=== PATIENT | female | born 1950 | race Caucasian/White ===

== ENCOUNTER → 2024-06-06 | Outpatient (CLI) | payer MEDICARE, BC, SELFPAY ==
--- NOTE | 2024-06-06 09:00 | XR_ITS ---
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 supine abdomen single view demonstrates nonobstructive bowel gas pattern Patient swallowed thin barium with 22 spot films obtained of the esophagus and stomach Primary peristaltic esophageal waves noted Secondary esophageal contractions depicted Mild gastroesophageal reflux No stricture the gastroesophageal junction There is mild mucosal fold thickening at the gastroesophageal junction Tiny gastric remnant Immediate emptying into the jejunum with no anastomotic stricture or ulceration IMPRESSION: Mild intermittent gastroesophageal reflux Mucosal fold thickening at the gastroesophageal junction, likely reflux esophagitis Tiny gastric remnant Immediate emptying into the jejunum with no anastomotic stricture or ulceration Fluoroscopy 0.30 minutes 22 spot fluoroscopic films
== END | disposition home or self-care (01) ==
LOC: CDIM 08:43
PROVIDERS: PCP Specialist; Referring Provider Surgery; Visit Provider Surgery
DX: K21.9 Gastro-esophageal reflux disease without esophagitis (principal); K22.89 Other specified disease of esophagus; Z98.84 Bariatric surgery status; Z98.890 Other specified postprocedural states
CPT/HCPCS: 74240

== ENCOUNTER → 2024-07-05 | Outpatient (CLI) | payer MEDICARE, BC, SELFPAY ==
--- NOTE | 2024-07-05 09:52 | XR_ITS ---
Examination: Bilateral hips, AP pelvis, 5 views Technique: AP, lateral views both hips, AP pelvis, 5 views Exam date and time: July 05, 2024 1045 hours INDICATIONS: Bilateral hip pain beginning 2 months ago. FINDINGS: Moderate osteopenia Mild to moderate narrowing right hip joint Moderate narrowing left hip joint No hip fracture or hip dislocation Bones the pelvis intact IMPRESSION: Mild to moderate narrowing right hip joint Moderate narrowing left hip joint
--- NOTE | 2024-07-05 09:52 | XR_ITS ---
Examination: Shoulder,left, 3 views Technique: Shoulder AP internal rotation, AP external rotation, Y view shoulder, 3 views Exam date and time :July 05, 2024 1045 hours INDICATIONS: Left shoulder pain beginning 2 months ago. FINDINGS: Prominent osteopenia Moderate narrowing glenohumeral joint Moderate osteoarthritis acromioclavicular joint Faint calcific tendinitis No fracture or dislocation IMPRESSION: Moderate narrowing glenohumeral joint Faint calcific tendinitis
== END | disposition home or self-care (01) ==
PROVIDERS: PCP Specialist; Referring Provider Specialist; Visit Provider Specialist
DX: M25.852 Other specified joint disorders, left hip (principal); M25.851 Other specified joint disorders, right hip; M75.32 Calcific tendinitis of left shoulder; M25.812 Other specified joint disorders, left shoulder
CPT/HCPCS: 73030; 73523

== ENCOUNTER → 2024-08-22 | Outpatient (CLI) | payer MEDICARE, BC, SELFPAY ==
--- NOTE | 2024-08-22 07:15 | XR_ITS ---
Examination: Abdomen sonogram, Limited Date and time of exam: August 22, 2024 0721 hrs. Indications: Elevated liver function tests on laboratory examination February 16, 2023, cholecystectomy 2017 Technique: Real-time chappell scale transabdominal sonographic images of the upper abdomen obtained. Findings: Absent gallbladder Common bile duct 0.4 cm no stones Pancreatic head 3.0 cm Liver 14.5 cm smooth contour no focal liver lesions Normal hepatopedal portal venous flow Patent IVC Impression: Absent gallbladder Normal common bile duct Liver normal size no focal liver lesions
== END | disposition home or self-care (01) ==
PROVIDERS: PCP Specialist; Referring Provider Specialist; Visit Provider Specialist
DX: K82.8 Other specified diseases of gallbladder (principal)
CPT/HCPCS: 76705

== ENCOUNTER 2024-09-16 11:45 | Day surgery (SDC) | payer MEDICARE, BC, SELFPAY ==
[2024-09-14 13:20] VITALS: BMI 29.0
--- NOTE | 2024-09-15 07:00 | EKG_ITS ---
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
--- NOTE | 2024-09-15 10:26 | XR_ITS ---
Examination: PA lateral chest 2 views TECHNIQUE: Upright PA lateral chest 2 views Exam date and time: September 15, 2024 10:50 AM Comparison May 06, 2017 INDICATIONS: Preop pacemaker insertion FINDINGS: Normal heart size. Lungs are clear. The osseous structures are intact IMPRESSION: No active disease
[2024-09-15 11:51] LABS: Basophils % (Auto) 1 % (0-2.5); Eosinophils # (Auto) 0.2 Thou/mm3 (0.0-0.5); Eosinophils % (Auto) 4 % (0-10); Hematocrit 41.5 % (36.0-46.0); Hemoglobin 13.5 g/dL (12.0-16.0); Immature Granulocytes % (Auto) 0 % (0-0); Immature Granulocytes Auto 0.01 Thou/mm3 (0.00-0.00); Lymphocytes # (Auto) 0.8 Thou/mm3 (1.0-4.8); Lymphocytes % (Auto) 13 % (10-50); Mean Corpuscular HGB Conc 32.5 g/dl (31.0-37.0); Mean Corpuscular Hemoglobin 28.7 pg (25.0-35.0); Mean Corpuscular Volume 88 fL (80-100); Monocytes # (Auto) 0.5 Thou/mm3 (0.0-0.8); Monocytes % (Auto) 9 % (0-12); Neutrophils # (Auto) 4.5 Thou/mm3 (1.8-7.7); Neutrophils % (Auto) 74 % (37-80); Nucleated Red Blood Cell % 0 /100 WBC (0); Platelet Count 206 Thou/mm3 (140-440); RDW Standard Deviation 46.7 fL (36.4-46.3); Red Blood Count 4.71 Miln/mm3 (4.00-5.20); White Blood Count 6.1 Thou/mm3 (3.6-11.0)
[2024-09-15 11:57] LABS: INR 1.1 (0.9-1.3); Partial Thromboplastin Time 27.9 Seconds (22.0-36.0); Prothrombin Time 11.8 Seconds (9.0-12.2)
[2024-09-15 12:09] LABS: Albumin, Serum 4.2 gm/dL (3.4-4.8); Anion Gap 9 (7-16); BUN/Creatinine Ratio 14 Ratio (12-20); Blood Urea Nitrogen 13 mg/dL (9-23); Calcium 9.3 mg/dL (8.3-10.6); Calcium (Corrected) 9.3 mg/dL (8.5-10.1); Carbon Dioxide 29.6 mMol/L (20.0-31.0); Chloride 107 mMol/L (98-107); Creatinine (Component) 0.9 mg/dL (0.6-1.3); Estimated Creatinine Clearance 57.9 mL/min (>60); Glucose 95 mg/dL (74-106); Osmolality,Calculated 290 (275-295); Phosphorous 4.3 mg/dL (2.4-5.1); Potassium 3.6 mMol/L (3.4-5.1); Sodium 146 mMol/L (136-145); eGFR > 60 See Note
[2024-09-16] VITALS (8 sets, daily range): BP systolic 142–196; BP diastolic 72–96; PULSE 51–70; RESP 13–18; TEMP 36.1–36.7; O2SAT 96–99
--- NOTE | 2024-09-16 14:59 | XR_ITS ---
Examination: AP chest single view Technique one AP semiupright portable chest single view Exam date and time: September 16, 2024 1559 hours FINDINGS: Post cardiac pacemaker placement FINDINGS: Transvenous dual chamber bipolar cardiac leads satisfactory position No pneumothorax Normal heart size Lungs are clear IMPRESSION: Cardiac leads satisfactory position
[2024-09-16] MEDS: ceFAZolin 1 GM in SODIUM CHLORIDE 0.9% (POP) 100 ML IV (15:10)
[2024-09-16] MEDS: hydrALAZINE INJ 20 MG/ML VIAL 10 MG IV (15:50)
--- NOTE | 2024-09-16 16:18 | ESOP_ITS ---
Cardiac Cath Procedure Procedure Narrative Procedure date 09/16/24 TITLE OF THE PROCEDURE: PERMANENT PACEMAKER PLACEMENT Indication for the procedure; Sick sinus syndromes ; this is a 74 yr ol dpt with HTN, c/o of fatigue , tiredness and dizziness symptoms pt had evaluation and HR was noted to be in the mid 40s; diagnosis of SSS was made and pacemaker was recommended ; Procedure ; Procedure was done in the medical lab tech instructor after appropriate timeout and under continuous electrocardiographic monitoring and intermittent blood pressure mon itoring and after instituting conscious sedation we started the procedure. Left subclavian region was prepared in a sterile fashion and sterile gowns were applied. 1% lidocaine anesthesia was used locally. Left subclavian venous access was obtained. Modified Seldinger technique was used for this. After the blood return was confirmed guidewire was placed into the left subclavian vein. We proceeded with making a pacemaker pocket. Incision was made over the left subclavian region and hemostasis was achieved. By gentle dissection pacemaker pocket was fashioned out of the prepectoralis fascia. Subsequently venous sheath was placed over the guidewire and a second guidewire was also placed through the venous sheath. Subsequently a new venous sheet was gently passed over one of the guidewires and through the venous sheet ventricular lead was gently advanced under fluoroscopic guidance. Ventricular lead was positioned at the apex of the right ventricle under fluoroscopic guidance and the lead was gently screwed into the myocardium. Subsequently we proceeded with lead testing. After the ventricular lead was placed, through a second venous sheath atrial lead was advanced under fluoroscopic guidance. Subsequently the atrial lead was positioned into the right atrial appendix and gently screwed in. After that atrial lead was tested. After both leads were tested and they were connected to the generator. The generator was placed in the pocket and pocket was flushed with antibiotic solution. Subsequently further hemostasis was achieved and pocket was inspected carefully and removed all gauzes. The generator was sutured to the prepectoralis fascia with silk. We started to proceed with suturing of the pocket. 2-0 Vicryl was used to suture the pocket and Dermabond was used to secure the skin. TESTING PARAMETERS ARE: Atrial lead: [employer] [id number] P-wave: 1.5 m.volts Threshold: 1 colts ant .4 ms Impedance: 487 ohms Ventricular lead [employer] [id number] R-wave: 8.2 m.V Threshold:1 vots at .4 ms Impedance: 877 ohms After the procedure was done, the final position of the leads and pacemaker was confirmed by fluoroscopy, and patient was taken to the recovery on stable conditions.
--- NOTE | 2024-09-16 17:03 | PC.NURSE ---
patient tranfered vias wheel chair to private car accompanied by spouse. dressing is clean dry and intact. discharge instructions given to both spouse and patient. both expressed verbal understanding.
== END 2024-09-16 16:57 | disposition home or self-care (01) ==
PROVIDERS: PCP Specialist; Referring Provider Internal Medicine; Visit Provider Internal Medicine
PROC: (CPT 33208; principal; 2024-09-16 13:00)
DX: I49.5 Sick sinus syndrome (principal); I10 Essential (primary) hypertension; Z01.810 Encounter for preprocedural cardiovascular examination; I25.10 Atherosclerotic heart disease of native coronary artery without angina pectoris; E78.5 Hyperlipidemia, unspecified
CPT/HCPCS: 33208; 36415; 71046; 80048; 80069; 82040; 84100; 85025; 85610; 85730; 93005; 99152; 99153; A4565; A4649; C1785; C1894; C1898; J0153; J0171; J0360; J0461; J0690; J2250; J2310; J3010; J3490

== ENCOUNTER → 2025-01-10 | Outpatient (CLI) | payer MEDICARE, BC, SELFPAY ==
--- NOTE | 2025-01-10 08:00 | XR_ITS ---
Examination: Screening digital mammography, bilateral Computer aided detection 3-D breast Tomosynthesis, bilateral Date and time of exam: January 10, 2025 0802 hours Compared to mammograms dating to February 03, 2017 Indication: Screening Technique: Nonmagnified MLO, CC views of the breasts to been obtained, reconstructed from 3-D Tomosynthesis images. R2 computer aided detection program utilized for evaluation of suspicious masses and/or abnormal calcifications. 3-D Tomosynthesis images obtained. Findings: The breasts are heterogeneously dense, which may obscure small masses Breast biopsy marker upper outer right breast Benign calcifications Skin lesions right breast No interval suspicious masses Impression: BI-RADS category II: Benign Findings. Recommend 1 year follow-up mammogram.
== END | disposition home or self-care (01) ==
LOC: CDIM 07:42
PROVIDERS: PCP Specialist; Referring Provider Specialist; Visit Provider Specialist
DX: Z12.31 Encounter for screening mammogram for malignant neoplasm of breast (principal); R92.1 Mammographic calcification found on diagnostic imaging of breast; R92.333 Mammographic heterogeneous density, bilateral breasts
CPT/HCPCS: 77063; 77067

== ENCOUNTER → 2025-01-25 | Outpatient (CLI) | payer MEDICARE, BC, SELFPAY ==
--- NOTE | 2025-01-25 09:00 | XR_ITS ---
Examination: Upper GI series with KUB Esophagram standard Fluoroscopy 13 spot fluoroscopic films of the esophagus and stomach Date and time: January 25, 2025 0939 hours INDICATIONS: Coughing difficulty swallowing 6 months, gastric bypass July 2013, history esophageal strictures with dilatation x3 the last 10 months ago FINDINGS: Hat Renovator AP supine abdomen nonobstructive bowel gas pattern Patient swallowed thin barium with 13 spot fluoroscopic films of the esophagus stomach and jejunum, fluoroscopy 0.17 minute Primary peristaltic esophageal waves noted Mucosal thickening in the distal esophagus which is pronounced Narrowing in the distal esophagus, 80% luminal reduction in dimension Small esophageal hernia, intermittent gastroesophageal reflux Significant partial gastrectomy, mucosal edema at the anastomosis with the jejunum IMPRESSION: Abnormal mucosal thickening in the distal esophagus with 80% reduction in dimension of the distal esophagus, recommend endoscopy follow-up to exclude esophageal tumor Partial gastrectomy Mucosal edema at the gastrojejunal anastomosis
== END | disposition home or self-care (01) ==
PROVIDERS: PCP Specialist; Referring Provider Specialist; Visit Provider Specialist
DX: K22.89 Other specified disease of esophagus (principal); R60.9 Edema, unspecified
CPT/HCPCS: 74240; A4649